=== PATIENT | male | born 1975 | race Caucasian/White ===

== ENCOUNTER → 2017-12-20 15:16 | Outpatient (CLI) | payer OTHER, SELFPAY ==
--- NOTE | 2017-12-20 15:17 | RAD_ITS ---
STUDY: X-RAY - RIGHT KNEE REASON FOR EXAM: Knee pain, postop. TECHNIQUE: 4 view(s) of the knee. COMPARISON: None. FINDINGS: Normal visualized distal femur. Normal visualized proximal tibia and fibula. Normal proximal tibiofibular articulation. There is mild joint space narrowing of the medial femorotibial compartment. Normal lateral femorotibial compartment. Normal patellofemoral articulation. The soft tissue structures are unremarkable. RAD/Knee 4 or More Views IMPRESSION: Mild joint space narrowing of the medial femorotibial compartment. Electronically Signed: Juan Lawson MD at 16:30 EDT Tel , Service support ,
== END ==
PROVIDERS: Family Provider Internal Medicine; PCP Internal Medicine; Visit Provider Orthopaedic Surgery
DX: M25.561 Pain in right knee (principal)
CPT/HCPCS: 73564

== ENCOUNTER → 2018-05-11 10:53 | Outpatient (CLI) | payer OTHER, SELFPAY ==
[2017-06-09 14:30] VITALS: BMI 27.1
--- NOTE | 2018-05-11 10:45 | RAD_ITS ---
STUDY: X-RAY - ORBITS REASON FOR EXAM: Male, 42 years old. This study is being performed as a clearance examination for exclusion of orbital metal, prior to the performance of an MRI examination. TECHNIQUE: 2 view(s) of the orbits were obtained. COMPARISON: None. FINDINGS: Normal bilateral orbits without a metallic orbital foreign body. Normal visualized facial bones. Normal paranasal sinuses. The soft tissue structures are unremarkable. RAD/Orbits for Foreign Body IMPRESSION: No demonstrated metallic orbital foreign body. The patient is cleared for an MRI examination. Electronically Signed: Bravo Lester MD at 11:26 EST Tel [phone], Service support ,
--- NOTE | 2018-05-11 10:56 | MRI_ITS ---
STUDY: MRI RIGHT KNEE REASON FOR EXAM: Right knee pain, history of bursectomy. TECHNIQUE: Standardized fat and water weighted pulse sequences were obtained in all 3 orthogonal planes. COMPARISON: Radiographs 12/20/2017. FINDINGS: There is a horizontal tear of the inferior articular surface/free margin of the posterior horn of the medial meniscus (proton-density sagittal images 33-38) with a very small parameniscal cyst (T2 sagittal image 22) and a flap tear of the posterior horn of the medial meniscus with a small superiorly displaced fragment (proton-density sagittal image 28). There is mild peripheral subluxation of the medial meniscus. Normal hyaline cartilage of the medial femorotibial compartment. Normal medial femoral condyle and tibial plateau. Normal medial collateral ligamentous complex (MCL). Normal distal semimembranosus, gracilis and semitendinosus tendons. Normal lateral meniscus. Normal hyaline cartilage of the lateral femorotibial compartment. Normal lateral femoral condyle and tibial plateau. Normal proximal tibiofibular articulation. Normal lateral collateral (fibular) ligament. Normal popliteus tendon. Normal biceps femoris tendon. Normal anterior cruciate ligament (ACL). Normal posterior cruciate ligament (PCL). Normal congruent patellofemoral articulation. Normal hyaline cartilage of the patellofemoral compartment. Normal medial and lateral patellar retinaculum. Normal visualized quadriceps tendon. Normal patellar tendon. Normal Hoffa's fat pad. There is a minimal volume of fluid in the knee joint. There is a thin medial patellar plica. There is extravasated fluid from a ruptured popliteal cyst (T2 sagittal images 12-16). There is micrometallic artifact at the anterior lateral aspect of the knee. The otherwise visualized osseous structures are unremarkable. MRI/Lower Ext Joint Only (Routine) IMPRESSION: Medial meniscal tear. Extravasated fluid from a ruptured popliteal cyst. Electronically Signed: Juan Lawson MD at 9:01 EST Tel , Service support ,
--- OUTSIDE RECORDS SUMMARY | 2018-07-06 13:18 | XMS RPT_ITS ---
:1975 Author Organization OHIP Care Team Providers Name Role Phone Mya Stewart Attending Unavailable Rom, Lauryn Referring Unavailable Rom, Lauryn Primary Care Unavailable Mya Stewart Attending Unavailable Rom, Lauryn Primary Care Unavailable Nurse, Surgery Attending Unavailable Rom, Lauryn Referring Unavailable Rom, Lauryn Primary Care Unavailable Mya Stewart Attending Unavailable Rom, Lauryn Referring Unavailable Rom, Lauryn Primary Care Unavailable Mya Stewart Attending Unavailable Rom, Lauryn Referring Unavailable Rom, Lauryn Primary Care Unavailable Mya Stewart Attending Unavailable Mya Stewart Referring Unavailable Rom, Lauryn Primary Care Unavailable Mya Stewart Attending Unavailable Lauryn Cueto Referring Unavailable Mya Stewart Attending Unavailable Mya Stewart Referring Unavailable Lauryn Cueto Primary Care Unavailable PROBLEMS PROBLEMS DATE TYPE CONDITION / CODE ATTENDING STATUS SOURCE 12/20/2017 Unknown M25.561 - Pain in [place], Active [place] right knee / [facility] M25.561(ICD-10) Hospital Repository 12/20/2017 Unknown S83.241A - Other [facility], [facility] [place] tear of medial [facility] meniscus, current Hospital injury, right Repository knee, initial encounter / S83.241A(ICD-10) 12/01/2017 Unknown M54.5 - Low back [place], Active [place] pain / [facility] M54.5(ICD-10) Hospital Repository 12/01/2017 Unknown G89.29 - Other [place], Active [place] chronic pain / [facility] G89.29(ICD-10) Hospital Repository 12/01/2017 Unknown M46.1 - [place], Active [place] Sacroiliitis, not [facility] elsewhere Hospital classified / Repository M46.1(ICD-10) 06/09/2017 Unknown M54.9 - [place], Active [place] Dorsalgia, [facility] unspecified / Hospital M54.9(ICD-10) Repository PROCEDURES PROCEDURES No Procedure Records FoundRESULTS RESULTS LOWER EXT JOINT ONLY Observed: 05/11/2018 Status: F Source: FANCY GAP (ROUTINE) 10:56 AM [facility] REPOSITORY [facility] Imaging Services [address] [place] [address] 18655 Lower Ext Joint Only (Routine) MR#: [id number] Acct: [id number] Name: EVELYN CORMIER Rep #: [id number] : 1975 M 42 From: Juan Lawson MD PCP: Lauryn Cueto DO Status: REG CLI Study: Lower Ext Joint Only (Routine) Date of Exam: 05/11/18 Exam# [id number] Ordering Dr: Mya Stewart DO STUDY: MRI RIGHT KNEE REASON FOR EXAM: Right knee pain, history of bursectomy. TECHNIQUE: Standardized fat and water weighted pulse sequences were obtained in all 3 orthogonal planes. COMPARISON: Radiographs 12/20/2017. FINDINGS: There is a horizontal tear of the inferior articular surface/free margin of the posterior horn of the medial meniscus (proton-density sagittal images 33-38) with a very small parameniscal cyst (T2 sagittal image 22) and a flap tear of the posterior horn of the medial meniscus with a small superiorly displaced fragment (proton-density sagittal image 28). There is mild peripheral subluxation of the medial meniscus. Normal hyaline cartilage of the medial femorotibial compartment. Normal medial femoral condyle and tibial plateau. Normal medial collateral ligamentous complex (MCL). Normal distal semimembranosus, gracilis and semitendinosus tendons. Normal lateral meniscus. Normal hyaline cartilage of the lateral femorotibial compartment. Normal lateral femoral condyle and tibial plateau. Normal proximal tibiofibular articulation. Normal lateral collateral (fibular) ligament. Normal popliteus tendon. Normal biceps femoris tendon. Normal anterior cruciate ligament (ACL). Normal posterior cruciate ligament (PCL). Normal congruent patellofemoral articulation. Normal hyaline cartilage of the patellofemoral compartment. Normal medial and lateral patellar retinaculum. Normal visualized quadriceps tendon. Normal patellar tendon. Normal Hoffa's fat pad. There is a minimal volume of fluid in the knee joint. There is a thin medial patellar plica. There is extravasated fluid from a ruptured popliteal cyst (T2 sagittal images 12-16). There is micrometallic artifact at the anterior lateral aspect of the knee. The otherwise visualized osseous structures are unremarkable. MRI/Lower Ext Joint Only (Routine) IMPRESSION: Medial meniscal tear. Extravasated fluid from a ruptured popliteal cyst. Electronically Signed: Juan Lawson MD at 9:01 EST Tel , Service support , CC: Mya Stewart DO; Lauryn Cueto DO Automobile Dealer: Signed ORBITS FOR FOREIGN Observed: 05/10/2018 Status: F Source: KRISHNA BODY 4:50 PM [facility] REPOSITORY [facility] Imaging Services [address] [place] [address] Orbits for Foreign Body MR#: [id number] Acct: [id number] Name: EVELYN CORMIER Rep #: [id number] : 1975 M 42 From: Bravo Lester MD PCP: Lauryn Cueto DO Status: REG CLI Study: Orbits for Foreign Body Date of Exam: 05/11/18 Exam# [id number] Ordering Dr: Mya Stewart DO STUDY: X-RAY - ORBITS REASON FOR EXAM: Male, 42 years old. This study is being performed as a clearance examination for exclusion of orbital metal, prior to the performance of an MRI examination. TECHNIQUE: 2 view(s) of the orbits were obtained. COMPARISON: None. FINDINGS: Normal bilateral orbits without a metallic orbital foreign body. Normal visualized facial bones. Normal paranasal sinuses. The soft tissue structures are unremarkable. RAD/Orbits for Foreign Body IMPRESSION: No demonstrated metallic orbital foreign body. The patient is cleared for an MRI examination. Electronically Signed: Bravo Lester MD at 11:26 EST Tel [phone], Service support , CC: Mya Stewart DO; Lauryn Cueto DO Automobile Dealer: Signed ORTHOPEDIC VISIT Observed: 03/21/2018 Status: F Source: KRISHNA REPORT 1:39 PM [facility] REPOSITORY [facility] Orthopaedics AND Sports Medicine [facility] [address] [place] [address] OFFICE VISIT Date of Service: 03/21/18 MR#: [id number] Acct: [id number] Name: EVELYN CORMIER Rep #: [id number] : 1975 Provider: Mya Stewart DO Age/Sex: 42/M [place] [facility] Status: Signed Intake Intake Visit Reasons: low back Is patient in pain?: Yes Pain scale (1-10): 3 Allergies No Known Allergies Allergy (Verified 12/01/17 14:07) Medications Ibuprofen [Motrin] 800 mg PO BID 05/28/15 [History Confirmed 06/09/17] Multivitamin [Daily Multiple Vitamin] 1 ea PO DAILY 05/28/15 [History Confirmed 06/09/17] Omeprazole [Prilosec] 40 mg PO DAILY 05/28/15 [History Confirmed 06/09/17] ascorbic acid (vitamin C) 500 mg tablet 500 mg PO QDAY 06/09/17 [History Confirmed 06/09/17] PFSH Surgical History S/P right knee surgery (Inactive) Family History Father Diabetes Social History Smoking Status: Current every day smoker HPI low back: Details: EVELYN CORMIER is a 42 year old M here today for increased right side PSIS pain. His last injection was 5 months ago. He has pain most of the time, increased with flexion and lifting. Denies numbness, tingling or other associated symptoms. He used ibuprofen prn. no chagnes in meds, med history, or other symptoms. Office Procedures Ortho Injections Injections Yes SI Joint (right PSIS) Details: Obtained consent for injection. Under sterile conditions, injected the patients right psis with 1cc bupivacaine and 1/2 cc kenalog. The patient tolerated the injection well without any noted complication. Patient should call our office if redness develops, pain worsens or if they have any concerns. Office Meds Kenalog Performing Provider: Mya Stewart DO Administered by: Mya Stewart DO on 03/21/18 09:29 Dose Route Admin Location Lot Number Expiration DateNDC Golf Superintendent 20 mg Intra-Articularright PSIS [id number] 05/13/19 0746-3767-01 [employer] Assessment AND Plan Plan patient has pain in left psis and has had success with injections in the past. patient elected to proceed with injection today. discussed if this fails to work will discuss other options at next visit. see chart for further details. Orders Orders: Medications Discontinued: Kenalog (triamcinolone acetonide) Disco20 mg (0.5 mL) Intra- Articular ONCE 0.5 mLM54.5 ntinued Reason: Office Medication has bee 0RF NS n Documented as given Coding Level of Care Code No Charge 03/21/18 1339 <Electronically signed by Mya Stewart DO> Date Mya Stewart DO Cosigner Signature: Date (if applicable) CC: ORTHOPEDIC VISIT Observed: 12/23/2017 Status: F Source: KRISHNA REPORT 10:42 AM [facility] REPOSITORY [facility] Orthopaedics AND Sports Medicine [address] [place] [address] OFFICE VISIT Date of Service: 12/20/17 MR#: [id number] Acct: [id number] Name: EVELYN CORMIER Rep #: [id number] : 1975 Provider: Mya Stewart DO Age/Sex: 42/M [place] [facility] Status: Signed Intake Intake Visit Reasons: RIGHT KNEE PAIN Is patient in pain?: Yes Pain scale (1-10): 3 Allergies No Known Allergies Allergy (Verified 12/01/17 14:07) Medications Ibuprofen [Motrin] 800 mg PO BID 05/28/15 [History Confirmed 06/09/17] Multivitamin [Daily Multiple Vitamin] 1 ea PO DAILY 05/28/15 [History Confirmed 06/09/17] Omeprazole [Prilosec] 40 mg PO DAILY 05/28/15 [History Confirmed 06/09/17] ascorbic acid (vitamin C) 500 mg tablet 500 mg PO QDAY 06/09/17 [History Confirmed 06/09/17] PFSH Surgical History S/P right knee surgery (Inactive) Family History Father Diabetes Social History Smoking Status: Current every day smoker HPI RIGHT KNEE PAIN: Details: EVELYN CORMIER is a 42 year old M here today for right knee pain. He states that over a year ago he had pain and saw Cong Janus who put him on Mobic but it was not helpful. He complains of medial knee pain and occasional swelling but he has increased pain with flexion and squatting in his posterior knee. Denies numbness, tingling or other associated symptoms. He has no known injury, no PT and no injections. He is having difficulty being able to work as he would like. Ortho Exam Right Knee Skin/Wound: Yes CDI Contralateral Normal: Yes Swelling: Yes Homans Sign: No Knee ROM: Yes ROM-Extension -20 to 0, Yes ROM-Flexion 0-140 (130) Examination: Yes Pain with flexion, Yes Crepitus, Yes Tiffani's Test, Yes Med jt line tenderness Quad Atrophy: No Apprehension with Lateral Translation: No Patella Grind: No KNEE: palpable plica band Assessment AND Plan 1. Acute medial meniscus tear of right knee, initial encounter S83.373J Plan X-rays were reviewed. There is no obvious fracture, dislocation, or lucency noted. Educated on the anatomy of the knee and explained he has signs of a medial meniscus tear. His options are do nothing, injections, PT and HEP. Due to the limited rom, pain with [place] we will order an MRI and gave PT script. Follow up in [] or sooner if pain, swelling, numbness or associated symptoms, or concerns develop. All questions answered. Patient in agreement of plan. Orders Orders: Plan Detail Other Orders Orders: Coding Level of Care Code Off vis,est,level 4 Diagnoses Acute medial meniscus tear of right knee, initial encounter S83.089X Encounter type: initial encounter 12/23/17 1042 <Electronically signed by Mya Stewart DO> Date Mya Santamaria Signature: Date (if applicable) CC: KNEE 4 OR MORE Observed: 12/20/2017 Status: F Source: KRISHNA JAZMIN 3:17 PM [facility] Imaging Services [address] [place] [address] Knee 4 or More Views MR#: [id number] Acct: [id number] Name: EVELYN CORMIER Rep #: [id number] : 1975 M 42 From: Juan Lawson MD PCP: Lauryn Cueto DO Status: REG CLI Study: Knee 4 or More Views Date of Exam: 12/20/17 Exam# [id number] Ordering Dr: Mya Stewart DO STUDY: X-RAY - RIGHT KNEE REASON FOR EXAM: Knee pain, postop. TECHNIQUE: 4 view(s) of the knee. COMPARISON: None. FINDINGS: Normal visualized distal femur. Normal visualized proximal tibia and fibula. Normal proximal tibiofibular articulation. There is mild joint space narrowing of the medial femorotibial compartment. Normal lateral femorotibial compartment. Normal patellofemoral articulation. The soft tissue structures are unremarkable. RAD/Knee 4 or More Views IMPRESSION: Mild joint space narrowing of the medial femorotibial compartment. Electronically Signed: Juan Lawson MD at 16:30 EDT Tel , Service support , CC: Mya Stewart DO; Lauryn Cueto DO Automobile Dealer: Signed ORTHOPEDIC VISIT Observed: 12/08/2017 Status: F Source: FANCY GAP REPORT 1:35 PM [facility] REPOSITORY [facility] Orthopaedics AND Sports Medicine [address] [place] [address] OFFICE VISIT Date of Service: 12/01/17 MR#: [id number] Acct: [id number] Name: EVELYN CORMIER Rep #: [id number] : 1975 Provider: Mya Stewart DO Age/Sex: 42/M [place] [facility] Status: Signed Intake Intake Visit Reasons: RIGHT HIP Is patient in pain?: Yes Allergies No Known Allergies Allergy (Verified 12/01/17 14:07) Medications Ibuprofen [Motrin] 800 mg PO BID 05/28/15 [History Confirmed 06/09/17] Multivitamin [Daily Multiple Vitamin] 1 ea PO DAILY 05/28/15 [History Confirmed 06/09/17] Omeprazole [Prilosec] 40 mg PO DAILY 05/28/15 [History Confirmed 06/09/17] ascorbic acid (vitamin C) 500 mg tablet 500 mg PO QDAY 06/09/17 [History Confirmed 06/09/17] PFSH Surgical History S/P right knee surgery (Inactive) Family History Father Diabetes Social History Smoking Status: Current every day smoker HPI RIGHT HIP: Details: EVELYN CORMIER is a 42 year old M here today for right sided low back/hip pain. He complains of pain over his PSIS. Patient notes the injection on 06/09/17 which was helpful for about 5 months. Patient has increased pain with laying down or prolonged sitting. He notes that he is taking ibuprofen 800 for pain daily. Denies numbness, tingling or other associated symptoms. ROS Const Reports system reviewed and no additional complaints, except as docu Eyes Reports system reviewed and no additional complaints, except as docu ENT Reports system reviewed and no additional complaints, except as docu Card Reports system reviewed and no additional complaints, except as docu Resp Reports system reviewed and no additional complaints, except as docu GI Reports system reviewed and no additional complaints, except as docu Reports system reviewed and no additional complaints, except as docu Musc Reports joint pain Skin/Breast Reports system reviewed and no additional complaints, except as docu Neuro Yes system reviewed and no additional complaints, except as docu Psych Reports system reviewed and no additional complaints, except as docu Endo Reports system reviewed and no additional complaints, except as docu Ortho Exam Spine General: alert, awake, oriented x3 Cognition: normal cognition Gait: normal gait Motor: muscle tone normal throughout Sensory Exam: no sensory deficits noted SPINE TESTING CERVICAL THORACIC LUMBAR Musculoskeletal General: Yes normal posture Strength 0=absent - 5=normal Details: ttp right psis Office Procedures Ortho Injections Injections Yes SI Joint (right side PSIS) Details: Obtained consent for injection. Under sterile conditions, injected the patients right PSIS with 0.5cc kenalog and 1cc bupivacaine. The patient tolerated the injection well without any noted complication. Patient should call our office if redness develops, pain worsens or if they have any concerns. Assessment AND Plan Problems 1. Chronic right-sided low back pain without sciatica M54.5; G89.29 Plan Injections were helpful for nearly 5 months and we will continue with conservative care and inject today. Reviewed the soreness he can expect over the next couple days until the steroid kicks in. Follow up in 3 months if needed or sooner if pain, swelling, numbness or associated symptoms, or concerns develop. All questions answered. Patient in agreement of plan. Orders Orders: Medications New: Kenalog (triamcinolone acetonide) 0.5 mg (0.05 mL) Intra- Articular ONG89.29, M46.1, M54.5 CE NS Coding Level of Care Code No Charge Diagnoses Chronic right-sided low back pain without sciatica M54.5; G89.29 Back pain laterality: right Chronicity: chronic Sciatica presence: without sciatica 12/08/17 1335 <Electronically signed by Mya Stewart DO> Date Mya Sutherlandigner Signature: Date (if applicable) CC: ORTHOPEDIC VISIT Observed: 07/14/2017 Status: F Source: KRISHNA REPORT 2:54 PM [facility] REPOSITORY [facility] Orthopaedics AND Sports Medicine [address] [place] [address] 324571 OFFICE VISIT Date of Service: 06/09/17 MR#: [id number] Acct: [id number] Name: EVELYN CORMIER Rep #: [id number] : 1975 Provider: Mya Stewart DO Age/Sex: 41/M [place] [facility] Status: Signed Intake Vital Signs06/09/17 Height 6 ft 06/09/17 Weight: 200 lb 06/09/17 Body Mass Index (BMI) 27.1 Intake Visit Reasons: low back Is patient in pain?: Yes Pain scale (1-10): 6 Allergies No Known Allergies Allergy (Verified 06/09/17 14:30) Medications Ibuprofen [Motrin] 800 mg PO BID 05/28/15 [History Confirmed 06/09/17] Multivitamin [Daily Multiple Vitamin] 1 ea PO DAILY 05/28/15 [History Confirmed 06/09/17] Omeprazole [Prilosec] 40 mg PO DAILY 05/28/15 [History Confirmed 06/09/17] ascorbic acid (vitamin C) 500 mg tablet 500 mg PO QDAY 06/09/17 [History Confirmed 06/09/17] PFSH Surgical History S/P right knee surgery (Inactive) Family History Father Diabetes Social History Smoking Status: Current every day smoker HPI low back: Details: EVELYN CORMIER is a 41 year old M here today for low back pain. He complains of constant right sided low back pain for years but has worsened in the past 3 months. No injury. He has known herniated disc L4-5 seen in previous MRI, most recent 2009. He sees Dr. Cruz for low back pain and has see Dr. Garay for back injections. He has had at least 3 back injections (within 3 months) but did not seem to work. Intermittently he has pain into right buttocks. No tingling/numbness. He takes Ibuprofen 1 tablet twice a day which helps. No changes in bowel and bladder control. Denies changes in night sweats and no saddle anesthesia, no fevers or chills. ROS Const Reports system reviewed and no additional complaints, except as docu Eyes Reports system reviewed and no additional complaints, except as docu ENT Reports system reviewed and no additional complaints, except as docu Card Reports system reviewed and no additional complaints, except as docu Resp Reports system reviewed and no additional complaints, except as docu GI Reports system reviewed and no additional complaints, except as docu Reports system reviewed and no additional complaints, except as docu Musc Reports back pain Skin/Breast Reports system reviewed and no additional complaints, except as docu Neuro Yes system reviewed and no additional complaints, except as docu Psych Reports system reviewed and no additional complaints, except as docu Endo Reports system reviewed and no additional complaints, except as docu Tyler/Lymph Reports system reviewed and no additional complaints, except as docu Aller/Immun Reports system reviewed and no additional complaints, except as docu Ortho Exam Spine Neuro: No Straight Leg Raise or Light Touch Sensation Cognition: normal cognition Speech: speech normal Gait: normal gait Sensory Exam: no sensory deficits noted SPINE TESTING CERVICAL THORACIC LUMBAR SLR: Negative Musculoskeletal General: Yes normal posture Thoracic/Lumbar Spine: thoracic and lumbar spine normal to inspection, lumbar spinal tenderness Strength 0=absent - 5=normal Office Procedures Ortho Injections Injections Details: Obtained consent for injection. Under sterile conditions, injected the patients right psis with 4cc bupivacaine and 1cc kenalog. The patient tolerated the injection well without any noted complication. Patient should call our office if redness develops, pain worsens or if they have any concerns. Office Meds Kenalog Performing Provider: Mya Stewart DO Administered by: Mya Stewart DO on 06/09/17 15:17 Dose Route Admin Location Lot Number Expiration DateNDC Golf Superintendent 1 mg Intra-Articularright psis [id number] 09/11/18 4046-9179-97 [employer] Assessment AND Plan 1. Acute right-sided low back pain without sciatica M54.5; M54.5 Plan Personally reviewed the patient's medical history, medications, surgeries and recent exams if available. Obtained X-rays of patient's lumbar spine. Personally reviewed x-rays. There is no obvious fracture, dislocation, or lucency noted. No pain with percussion on exam, no radiculopathy today, no reproduction of pain through rom. Gave PT script today, if that fails we will order a new MRI. He does have ttp the psis of the right side. Reviewed trial of injection in right psis Follow up as needed or sooner if pain, swelling, numbness or associated symptoms, or concerns develop. All questions answered. Patient in agreement of plan. Orders Orders: Referrals: Medications Discontinued: Kenalog Discontinued Reason: Office M1 mg (0.1 mL) Intra- Articular ONCE NS [place] edication has been Documented as given Plan Detail Other Orders Orders: Coding Level of Care Code Off vis,new,level 3 Diagnoses Acute right-sided low back pain without sciatica M54.5; M54.5 Back pain laterality: right Chronicity: acute Sciatica presence: without sciatica 07/14/17 1454 <Electronically signed by Mya Stewart DO> Date Mya Stewart DO Cosigner Signature: Date (if applicable) CC: L/S SPINE COMP/W Observed: 06/09/2017 Status: F Source: FANCY GAP BENDING VIEWS 2:49 PM [facility] REPOSITORY [facility] Imaging Services [address] [place] [address] L/S Spine Comp/w Bending Views MR#: [id number] Acct: [id number] Name: GENIAEVELYN W Rep #: [id number] : 1975 M 41 From: Reyes Medina MD PCP: Lauryn Cueto DO Status: REG CLI Study: L/S Spine Comp/w Bending Views Date of Exam: 06/09/17 Exam# [id number] Ordering Dr: Mya Stewart DO STUDY: X-RAY - LUMBOSACRAL SPINE REASON FOR EXAM: Male, 41 years old. Low back pain. Injury 8 years ago. TECHNIQUE: 7 view(s) of the lumbosacral spine including lateral flexion and extension views were obtained. COMPARISON: None FINDINGS: Normal lumbar lordosis. There is no substantial scoliosis. There is normal alignment of the vertebrae. There is limited flexion and extension with no abnormal motion. Normal vertebral bodies and endplates. There is minimal intervertebral disc space narrowing with small osteophytes at L4-5. There is minimal lower facet sclerosis. Normal bilateral sacral ala, sacroiliac joints, and visualized sacrum. Normal visualized soft tissue structures. RAD/L/S Spine Comp/w Bending Views IMPRESSION: Limited flexion and extension with no abnormal motion. Mild lumbar spondylosis as described. Electronically Signed: Reyes Medina MD at 11:55 EST , Service support , CC: Mya Stewart DO; Lauryn Cueto DO Automobile Dealer: Signed ALLERGIES ALLERGIES DATE TYPE / CODE NAME / CODE REACTION SEVERITY SOURCE 12/01/2017 Drug No Known Unknown [facility] Allergy/4160 Allergies/F00 Hospital 38661(SNOMED [id number](RXNOR Repository CT) M) ENCOUNTERS ENCOUNTERS ADMIT/DISCHARGE ACCOUNT ADMITTING ENCOUNTER LOCATION SOURCE NUMBER CLASS 05/11/2018 [id number] Ambulatory [place] 2 [facility] ing:MRI Repository 03/21/2018/ [id number] Ambulatory BMSBuilding:B [facility] 8 1 [facility] Repository 12/20/2017 [id number] Ambulatory [place] 0 [facility] ing:HPRAD Repository 12/20/2017/ [id number] Ambulatory BMSBuilding:B [place] 8 4 [place] Repository 12/01/2017/ [id number] Ambulatory BMSBuilding:B Krishna 8 1 MS.[facility] Repository 08/30/2017/ [id number] Ambulatory BMSBuilding:[place] 8 3 MS.[facility] Repository 06/09/2017 [id number] Ambulatory [place] 1 [facility] ing:HPRAD Repository 06/09/2017/ [id number] Ambulatory BMSBuilding:[place] 7 6 MS.[facility] Repository PAYERS PAYERS ENCOUNTER GUARANTOR PAYER SUBSCRIBER SOURCE 05/11/2018 EVELYN Maravilla Primary Insurance:[facility] WINNIE [place] [id number] [facility] SCHRIBERDOB: [facility] 6340-23-[place]FRFB[place] Number: Repository [id number]: [phone] [id number] [phone] (HP) Date:1881-95-28FV [address] [address]ZICSGCKKH, [place] [address]OB: CHECK WEBSITE 05/11/2018 Secondary NOT GIVENUNK Krishna Insurance:SELF PAY [facility] Number: Effective Repository Date:2018-01-02 03/21/2018 EVELYN Maravilla Primary Insurance:[facility] WINNIE [place] [id number] [facility] SCHRIBERDOB: [facility] 9624-74-44[place]TR[place], [place] Number: Repository [id number]: 330 [id number] [phone] (HP) Date:2633-44-01JW [address] [address]PNVTROULC, [place] [address]QE: CHECK WEBSITE 03/21/2018 Secondary NOT GIVENUNK Krishna Insurance:SELF PAY [facility] Number: Effective Repository Date:2018-03-21 12/20/2017 EVELYN Taiwo Primary Insurance:[facility] WINNIE [place] [id number] [facility] SCHRIBERDOB: [facility] 8935-03-45KSZBrentwood, [place] Number: Repository [id number]: [phone] [id number] [phone] (HP) Date:9634-97-87CD [address] [address]EINVEAMQU, [place] [address]QK: CHECK WEBSITE 12/20/2017 Secondary NOT GIVENUNK Krishna Insurance:SELF PAY [facility] Number: Effective Repository Date:2017-12-20 12/20/2017 EVELYN Maravilla Primary Insurance:[facility] WINNIE Solomon [id number] [employer] SCHRIBERDOB: [facility] 4911-05-73OMXBrentwood, [place] Number: Repository [id number]: 330 [id number] [phone] (HP) Date:1538-10-34BU [address] [address]EULMEZVLY, [place] [address]YT: CHECK WEBSITE 12/20/2017 Secondary NOT GIVENUNK Krishna Insurance:SELF PAY [facility] Number: Effective Repository Date:2017-12-20 12/01/2017 EVELYN Taiwo Primary Insurance:[facility] WINNIE [place] [id number] [facility] SCHRIBERDOB: [facility] 6915-38-47MOABrentwood, [place] Number: Repository [id number]: [phone] [id number] [phone] (HP) Date:4385-78-29VU [address] [address]DAICSBVZP, [place] [address]AM: CHECK WEBSITE 12/01/2017 Secondary NOT GIVENUNK Krishna Insurance:SELF PAY [facility] Number: Effective Repository Date:2017-12-01 08/30/2017 EVELYN W Primary Insurance:[facility] WINNIE Solomon [id number] [facility] SCHRIBERDOB: [facility] 7649-34-17ODUBrent[place], [place] Number: Repository [address]Rgw: [id number] [phone] Date:5401-32-53PX [address] [address]TXMEIDRLE, [place] [address]IY: CHECK WEBSITE 08/30/2017 Secondary NOT GIVENUNK Krishna Insurance:SELF PAY [facility] Number: Effective Repository Date:2017-08-30 06/09/2017 EVELYN W Primary Insurance:[facility] Winnie [place] [id number] [employer] [facility] SchriberDOB: [facility] 1883-89-65QJRBrentwood, [place] Number: Repository [id number]: [id number] [phone] Date:7431-58-18HS [address] () [address]KTOGAGTWX, [place] [address]KV: CHECK WEBSITE 06/09/2017 Secondary NOT GIVENUNK Krishna Insurance:SELF PAY [facility] Number: Effective Repository Date:2017-06-09 06/09/2017 EVELYN W Primary Insurance:[facility] Winnie [place] [id number] [facility] SchriberDOB: [facility] 5235-41-71XPWBrentwood, [place] Number: Repository [id number]: [id number] [phone] Date:8869-81-34QG [address] () [address]ZTMGEZMHJ, [place] [address]DS: CHECK WEBSITE 06/09/2017 Secondary NOT GIVENUNK Krishna Insurance:SELF PAY [facility] Number: Effective Repository Date:2017-05-16
== END ==
PROVIDERS: Family Provider Internal Medicine; PCP Internal Medicine; Referring Provider Orthopaedic Surgery; Visit Provider Orthopaedic Surgery
DX: Z01.818 Encounter for other preprocedural examination (principal); S83.241A Other tear of medial meniscus, current injury, right knee, initial encounter; X58.XXXA Exposure to other specified factors, initial encounter; Y93.9 Activity, unspecified; Y92.9 Unspecified place or not applicable; Y99.9 Unspecified external cause status
CPT/HCPCS: 70030; 73721

== ENCOUNTER → 2018-10-24 15:13 | Outpatient (CLI) | payer OTHER, SELFPAY ==
[2017-06-09 14:30] VITALS: BMI 27.1
== END ==
PROVIDERS: Family Provider Internal Medicine; PCP Internal Medicine; Referring Provider Otolaryngology Otolaryngology/Facial Plastic Surgery; Visit Provider Otolaryngology Otolaryngology/Facial Plastic Surgery
DX: J32.9 Chronic sinusitis, unspecified (principal)
CPT/HCPCS: 87070; 87077; 87205

== ENCOUNTER → 2018-11-15 15:59 | Outpatient (CLI) | payer OTHER, SELFPAY | PROVIDERS: Family Provider Internal Medicine; PCP Internal Medicine; Referring Provider Otolaryngology Otolaryngology/Facial Plastic Surgery; Visit Provider Otolaryngology Otolaryngology/Facial Plastic Surgery | DX: J32.9 Chronic sinusitis, unspecified (principal); J40 Bronchitis, not specified as acute or chronic | CPT/HCPCS: 87070; 87205 ==

== ENCOUNTER → 2018-12-15 14:23 | Outpatient (CLI) | payer OTHER, SELFPAY ==
--- NOTE | 2018-12-15 14:33 | RAD_ITS ---
STUDY: X-RAY CHEST REASON FOR EXAM: Male, 43 years old. Cough x 8 weeks. TECHNIQUE: PA and lateral views of the chest. COMPARISON: None. FINDINGS: The lungs are normally expanded. Mildly lobulated 1 cm nodular density projects on the frontal view in the lateral right midlung, overlapping the posterior lateral right eighth rib. This may be calcified, such as a granuloma. There is focal curvilinear scarring in the lingula of the left upper lobe. There is no demonstrated pleural abnormality. Normal size heart. Normal mediastinum and mis. Normal visualized pulmonary arteries. Normal visualized aortic arch and descending thoracic aorta. Normal visualized thoracic spine. Normal visualized ribs, clavicles, and shoulders. There is no demonstrated abnormality of the visualized soft tissue structures of the upper abdomen. RAD/Chest PA and Lateral IMPRESSION: Probable focal scarring in the bilateral lung bases, as described. The area on the right has a nodular appearance, and comparison with any previous outside studies would be useful to document stability. If none are available, one might consider shallow oblique views for further characterization or 3 month follow-up. Electronically Signed: Camacho Hart MD at 14:47 EDT , Service support ,
== END ==
PROVIDERS: Family Provider Internal Medicine; PCP Internal Medicine; Referring Provider Otolaryngology Otolaryngology/Facial Plastic Surgery; Visit Provider Otolaryngology Otolaryngology/Facial Plastic Surgery
DX: R05 Cough (principal)
CPT/HCPCS: 71046

== ENCOUNTER → 2019-01-04 07:50 | Outpatient (CLI) | payer OTHER, SELFPAY ==
--- NOTE | 2019-01-04 07:54 | CT_ITS ---
STUDY: CT CHEST WITH CONTRAST REASON FOR EXAM: Male, 43 years old. Persistent nonproductive cough RADIATION DOSAGE (If Supplied By Facility): CTDIvol = ( 13.75 ) mGy, DLP = ( 546.50 ) mGycm TECHNIQUE: Transaxial imaging was performed following intravenous administration of 100 IV Isovue 300. Individualized dose optimization techniques were used for this CT. COMPARISON: Previous plain films FINDINGS: Lung windows show noncalcified nodular densities in the right middle lobe on axial image 62 of uncertain significance, this may be sequela from previous inflammation or a more sinister process. Consider further evaluation with PET/CT or short-term follow-up to assure stability The lungs are otherwise normal. There is no demonstrated pleural abnormality. Normal heart and pericardium. Normal mediastinum. Normal hilar regions. Normal enhanced pulmonary arteries. Normal aorta arch and descending thoracic aorta. Normal osseous structures. Limited cuts through the upper abdomen show fatty infiltration of the liver. CT/Chest WITH Contrast IMPRESSION: Some interstitial changes noted in both lung terrell with focal area of noncalcified nodularity in the right middle lobe on axial image 62. This may be sequela from previous inflammatory process, but a more sinister process cannot be excluded. Consider further evaluation with PET/CT or short-term follow-up to assure stability No organized infiltrate or effusion No suspicious adenopathy Fatty liver Electronically Signed: Camacho Jones MD at 12:33 EDT , Service support ,
== END ==
PROVIDERS: Family Provider Internal Medicine; PCP Internal Medicine; Referring Provider Otolaryngology Otolaryngology/Facial Plastic Surgery; Visit Provider Otolaryngology Otolaryngology/Facial Plastic Surgery
DX: R05 Cough (principal); R91.8 Other nonspecific abnormal finding of lung field
CPT/HCPCS: 71260; Q9967

== ENCOUNTER → 2019-02-26 08:40 | Outpatient (CLI) | payer OTHER, SELFPAY ==
[2019-01-16 10:38] VITALS: BMI 29.4
[2019-02-26] VITALS (11 sets, daily range): BP systolic 123–143; BP diastolic 71–96; PULSE 56–67; RESP 16–18; TEMP 37.1; O2SAT 91–100; BMI 29.1
--- NOTE | 2019-02-26 | IMM_PTH ---
PATIENT: EVELYN CORMIER LOC: CT U#:[id number] AGE/SX: 49/M ROOM: RE02/26/[address]: Dr. Theo Doran MD : 1975 BED: DIS: SPEC #: [id number] RECD: 02/27/19 12:27 STATUS: LUCILLE REAlexander #: [id number] ARLENE: 02/26/19 00:[address]: Theo Doran DEPT: IMMUNOHISTOCHEMISTRY RECD BY: Karrie Rai ENTERED: 02/27/19 12:28 SP TYPE: IMMUNO OTHR DR: Dr. Lauryn Cueto DO Tissues: Lung, NOS Procedures: Boni Ret (add) CK7 (add) CK8 (add) MACRO (add) Vimentin (add) Pankeratin (initial) PHYSICIAN & INSTITUTION [place] [address] SPECIMEN INFORMATION: Tissue Source: Right upper lobe, lung, CT-guided core biopsy Clinical Info: Right lung nodule Specimen Number: [id number] CPT code: 86555, 03775 x5 METHODOLOGY: Deparaffinized sections of prefer/formalin-fixed tissue or PAP/DQ stained slides are incubated with monoclonal/polyclonal antibodies/oligonucleotide probes. Localization is made via biotin free immunoperoxidase method. Appropriate controls are performed and reacted as expected. Results on target cell population are indicated in the following table: RESULTS: ANTIBODY / CLONE RESULT AE1-3 (AE1/AE3/PCK26) positive CK7 (OV-TL12/30) positive CK8 (33pfgjO15) positive, focal Vimentin (V9) negative Macro (HAM-56) positive, rare cells CALRET (polyclonal) negative These tests were developed and their performance characteristics determined by [facility]. They may not have been cleared or approved by the U.S. Food and Drug Administration. The FDA has determined that such clearance or approval is not necessary. INTERPRETATION: Right upper lobe, lung, CT-guided core biopsy: A minute fragment of benign lung parenchymal tissue. NIR:leana 02/28/19
[2019-02-26 08:52] LABS: Hematocrit 48.9 % (40-54); Hemoglobin 16.4 g/dL (13.0-16.5); Mean Corp Hgb Conc 33.5 g/dL (32-36); Mean Corpuscular Hgb 29.4 pg (27.0-32.0); Mean Corpuscular Volume 87.6 fL (80-94); Mean Platelet Vol. 9.4 fl (6.2-12.0); Platelet Count 258 K/mm3 (150-450); RBC Distribution Width CV 12.3 % (11.6-14.6); RBC Distribution Width SD 39.6 fl (35.1-43.9); Red Blood Count 5.58 M/mm3 (4.6-6.2); White Blood Count 8.1 K/mm3 (4.4-11.0)
[2019-02-26 09:07] LABS: Prothrombin Time (Protime)PT. 13.3 SECONDS (11.7-14.9)
[2019-02-26 09:08] LABS: Partial Thromboplast Time 28.7 Seconds (24.1-36.2)
--- NOTE | 2019-02-26 09:14 | CT_ITS ---
PROCEDURE: CT GUIDED CORE NEEDLE BIOPSY OF A right upper lobe LUNG LESION INDICATION: Male, 43 years old. Right upper lobe nodule. PHYSICIAN: Dr. rTevon TOURE CONSENT: Written informed consent was obtained having explained the risks, benefits and alternatives in detail with the patient who accepted the risks and agreed to proceed. Laboratory review and clinical assessment was performed. CONSCIOUS SEDATION PROTOCOL: The Drugs used were: 2 mg Versed, IV., and 50 mcg Fentanyl, IV. The sedation time was: 10 minutes. Conscious sedation was started at 10:23 AM and terminated at 10:33 AM. The conscious sedation protocol was independently monitored. RADIATION DOSAGE (If Supplied By Facility): CTDIvol = ( 13 ) mGy, DLP = ( 382.95 ) mGycm Individualized dose optimization techniques were used for this CT. TECHNIQUE: The patient was placed in the supine position. A noncontrast CT was performed to localize the lesion in the right upper lobe . The skin surface was prepped and draped in a sterile fashion. 1% lidocaine was used for local anesthesia. Using CT guidance, a 20-gauge coaxial biopsy device was advanced to the periphery of the lesion. A total of 5 core specimens were obtained. The specimens were placed in a formalin solution. A post procedure CT demonstrated no adverse sequelae or pneumothorax. The patient tolerated the procedure well without adverse event. A negative biopsy does not exclude malignancy. Further imaging or clinical followup based on patient condition and degree of clinical suspicion for malignancy. Suggest rebiopsy, if biopsy results do not match with clinical scenario. CT/Biopsy/Inj or Needle Placement IMPRESSION: 1. CT directed core needle biopsy of the right upper lobe nodule using CT image guidance with image documentation as described. Pathology results are pending. 2. Conscious Sedation protocol utilized with independent monitoring. Electronically Signed: Bravo Lester, at 11:19 EDT , Service support ,
[2019-02-26] MEDS: Midazolam 2 MG/2 ML Syringe IV (10:23)
[2019-02-26] MEDS: fentaNYL 100 MCG/2 ML Ampul IV (10:23)
--- NOTE | 2019-02-26 10:25 | ASPIGT_PTH ---
PATIENT: EVELYN CORMIER LOC: [place] U#:[id number] AGE/SX: 49/M ROOM: RE02/26/[address]: Dr. Theo Doran MD : 1975 BED: DIS: SPEC #: [id number] RECD: 02/26/19 11:10 STATUS: LUCILLE DAISY #: [id number] ARLENE: 02/26/19 10:[address]: Theo Doran DEPT: SURGICAL PATHOLOGY RECD BY: Austin Page ENTERED: 02/26/19 11:11 SP TYPE: ASP RAD OTHR DR: Dr. Lauryn Cueto DO Tissues: Right lung, NOS Procedures: FNA Specimen Adequacy Special Stain Group II Surgery Specimen Level IV Imprint (control) HEADER OPERATION: CT-guided right upper lobe, lung, core biopsy PRE-OP DIAGNOSIS: Right lung nodule TISSUE SUBMITTED: Right lung nodule 20 gauge x5 cores MICROSCOPIC DIAGNOSIS Right lung nodule, CT-guided core biopsy: Negative for malignancy. See comment. NIR:leana 02/27/19 COMMENT The specimen is evaluated at the time of biopsy by Dr. Khan. Immediate Evaluation = Negative for malignant cells. Smears predominantly consists of benign cells and a few cells suggestive of granuloma formation. Cell block is paucicellular and consists of a minute fragment of benign lung parenchymal tissue. Immunohistochemistry ([id number]) supports the above diagnosis. Correlation with clinical, radiologic findings and appropriate follow up are necessary. Case has been reviewed in consultation with Dr. Ramirez who concurs with the above diagnosis. IDC:AM MICROSCOPIC DESCRIPTION Slides are reviewed. GROSS DESCRIPTION Received in fixative is one container labeled with the patient's name and designated right lung nodule. The specimen consists of a scant amount of soft tissue. The specimen is totally submitted for cell block preparation. Four touch imprints are prepared at the time of core biopsy. / NIR:leana 02/26/19 TC:5 CPT: 52086, 86623
--- NOTE | 2019-02-26 10:30 | RAD_ITS ---
STUDY: X-RAY CHEST REASON FOR EXAM: Male, 43 years old. Immediate post right lung biopsy radiograph. TECHNIQUE: AP inspiration and expiration views. COMPARISON: Comparison is made with prior examination dated December 15, 2018. FINDINGS: There is no evidence of pneumothorax on the immediate postright lung biopsy radiograph. RAD/Chest Insp/Exp 2 View IMPRESSION: No evidence of pneumothorax on the immediate postright lung biopsy radiograph. Electronically Signed: Bravo Lester, at 13:19 EDT , Service support ,
--- NOTE | 2019-02-26 12:43 | RAD_ITS ---
STUDY: X-RAY CHEST REASON FOR EXAM: Male, 43 years old. 2 hour postright lung biopsy radiograph. TECHNIQUE: Inspiration expiration views. COMPARISON: Comparison is made with prior study done earlier today. FINDINGS: No evidence of pneumothorax on the delayed post right lung biopsy. RAD/Chest Insp/Exp 2 View IMPRESSION: No evidence of pneumothorax on the delayed post right lung biopsy radiograph. Electronically Signed: Bravo Lester, at 14:22 EDT , Service support ,
== END ==
PROVIDERS: Family Provider Internal Medicine; PCP Internal Medicine; Referring Provider Internal Medicine Critical Care Medicine; Visit Provider Internal Medicine Critical Care Medicine
DX: R91.1 Solitary pulmonary nodule (principal); Z79.899 Other long term (current) drug therapy
CPT/HCPCS: 32405; 36415; 71046; 77012; 85027; 85610; 85730; 88172; 88305; 88307; 88313; 88341; 88342; 99156; J7040

== ENCOUNTER → 2019-03-07 10:58 | Outpatient (CLI) | payer OTHER, SELFPAY ==
[2019-03-07 06:16] VITALS: BMI 29.2
--- NOTE | 2019-03-07 11:00 | RAD_ITS ---
STUDY: X-RAY CHEST REASON FOR EXAM: Male, 43 years old. RECENT LUNG BX, HAVING SOB AND SOME RIGHT SIDED CP NOW TECHNIQUE: PA and lateral views of the chest. COMPARISON: Procedural CT images from lung biopsy on the right dated February 26, 2019, chest x-ray February 26, 2019, PA and lateral chest December 15, 2018 FINDINGS: Pulmonary nodule seen in the right lung which was biopsied is again evident without a significant change in size postbiopsy. The remainder lungs are and expanded. There is no demonstrated pleural abnormality. Normal size heart. Normal mediastinum and mis. Normal visualized pulmonary arteries. Normal visualized aortic arch and descending thoracic aorta. Normal visualized thoracic spine. Normal visualized ribs, clavicles, and shoulders. There is no demonstrated abnormality of the visualized soft tissue structures of the upper abdomen. RAD/Chest PA and Lateral IMPRESSION: No acute intrathoracic process. Stable appearance right lung nodule. Electronically Signed: Mickie Nielson MD at 16:03 EDT , Service support ,
== END ==
PROVIDERS: Family Provider Internal Medicine; PCP Internal Medicine; Referring Provider Internal Medicine Critical Care Medicine; Visit Provider Internal Medicine Critical Care Medicine
DX: J95.89 Other postprocedural complications and disorders of respiratory system, not elsewhere classified (principal); R91.1 Solitary pulmonary nodule
CPT/HCPCS: 71046

== ENCOUNTER → 2019-03-22 06:17 | Outpatient (CLI) | payer OTHER, SELFPAY ==
[2019-01-16 10:38] VITALS: BMI 29.4
[2019-03-20 08:42] VITALS: BMI 29.2
--- NOTE | 2019-03-22 06:20 | ECHOD_ITS ---
Reason For Study: Abn. EKG Procedure This was a 2D Doppler, Color Flow transthoracic echocardiogram. Exam performed in department. Left Ventricle Normal LV size. Left ventricular systolic function is normal. The estimated ejection fraction is 60 %. The global longitudinal strain = -19 % (normal). No evidence for diastolic dysfunction. No regional wall motion abnormalities noted. Right Ventricle Normal RV size. Normal systolic function. Atria Normal left atrium. Normal right atrium. No doppler evidence for ASD. Mitral Valve There is no mitral annular calcification. Mild diffuse mitral valve thickening. Trivial mitral valve insufficiency. Tricuspid Valve Normal tricuspid valve. Trivial tricuspid valve insufficiency. Aortic Valve Trisinus/trileaflet aortic valve. Normal aortic valve. Pulmonic Valve The pulmonic valve is not well visualized. Trivial eccentric pulmonic valve insufficiency. Great Vessels Normal sized aortic root. Pericardium/Pleural No pericardial effusion. MMode/2D Measurements & Calculations LVIDd: 4.7 cm IVSd: 1.0 cm Ao root diam: 3.3 cm LVIDs: 2.8 cm LVPWd: 1.0 cm RVDd: 3.7 cm FS: 40.1 % LAV(MOD-bp): 30.9 ml EDV(MOD-sp4): 118.4 ml EDV(MOD-sp2): 104.0 ml LAV(MOD-bp) Indexed: 14.2 ml/m2 ESV(MOD-sp4): 56.8 ml EF(MOD-sp2): 49.6 % LAV(MOD-sp2): 26.1 ml EF(MOD-sp4): 52.0 % LAV(MOD-sp4): 34.2 ml SV(MOD-sp4): 61.5 ml SV(MOD-sp2): 51.6 ml LA A4 area: 13.1 cm2 LA dimension(2D): 3.3 cm RA A4 area: 11.3 cm2 Doppler Measurements & Calculations MV E max jeremy: 72.2 cm/sec Lat Peak E' Jeremy: 11.8 cm/sec Med Peak E' Jeremy: 9.1 cm/sec MV A max jeremy: 40.5 cm/sec E/E' lat: 6.1 E/E' med: 7.9 MV E/A: 1.8 Ao V2 max: 111.5 cm/sec LV V1 max: 85.2 cm/sec PA V2 max: 85.2 cm/sec Ao max P.0 mmHg LV V1 max P.9 mmHg Interpretation Summary Left ventricular systolic function is normal. The estimated ejection fraction is 60 %. The global longitudinal strain = -19 % (normal). Mild diffuse mitral valve thickening. Trivial mitral valve insufficiency. Trivial tricuspid valve insufficiency. Trivial eccentric pulmonic valve insufficiency. No evidence for diastolic dysfunction. Ordering Physician: Lauryn Cueto Referring Physician: Lauryn Cueto Performed By: Lizabeth Guzman RDCS
--- NOTE | 2019-03-29 13:36 | STRESSREP ---
Stress Test Report Date: 03/22/2019 Procedure: Exercise tolerance test/imaging study Indications: Chest pain Consent: Per the patient Procedure: The patient exercised on a Theo protocol for 11 minutes and 15 seconds achieving a peak heart rate of 153 bpm (85 % predicted maximal heart rate) with a peak blood pressure 160/82 mmHg and a peak MET capacity of 13.4 METs. The baseline ECG demonstrated normal sinus rhythm. The peak exercise ECG demonstrated sinus tachycardia with no significant ST-T changes. EKG during recovery revealed no evidence of significant ischemia [There were no cardiac dysrhythmias pretest, during exercise, or recovery]. The functional capacity was considered above average for age. There was [no complaint of chest discomfort during exercise or recovery]. The examination was discontinued secondary to dyspnea and leg discomfort. Impression: 1. Technically adequate (percent predicted maximal heart rate greater than 85%) exercise tolerance test 2. Stress test is negative for exercise-induced EKG changes of ischemia 3. The test test is negative for exercise-induced chest pain 4. Functional capacity is above average for age 5. Nuclear images pending Myocardial perfusion imaging study: Technique: The patient was injected with 12 mCi of technetium 99m Cardiolite and subsequently rest SPECT Cardiolite nuclear imaging was obtained in the horizontal long, vertical long, and short axis views. The patient exercised on a Theo protocol. Please see above for details. The patient was injected with 33 mCi of technetium 99m Cardiolite and subsequently stress SPECT Cardiolite nuclear imaging was obtained in the horizontal long, vertical long, and short axis views. A gated Cardiolite study at peak stress was obtained. Interpretation: Rest and stress SPECT Cardiolite nuclear imaging status post realignment, normalization, and attenuation correction, demonstrates normal overall myocardial radioisotope uptake. The gated Cardiolite study demonstrates no significant regional wall motion abnormalities. The reported LVEF is 66 %. Impression: 1. There is no evidence of significant ischemia or infarction. 2. The gated Cardiolite study reports an LVEF of 66 %. This note was generated with Call Britanniaation software. It may contain incorrect words, spelling, and punctuation that were not noted in checking the note before signing.
== END ==
PROVIDERS: Family Provider Internal Medicine; PCP Internal Medicine; Referring Provider Internal Medicine; Visit Provider Internal Medicine
DX: R07.89 Other chest pain (principal); R94.31 Abnormal electrocardiogram [ECG] [EKG]
CPT/HCPCS: 78452; 93017; 93306; A9500; A4216

== ENCOUNTER → 2019-04-04 16:52 | Outpatient (CLI) | payer OTHER, SELFPAY ==
[2019-03-20 08:42] VITALS: BMI 29.2
--- NOTE | 2019-04-04 16:53 | MRI_ITS ---
STUDY: MRI LUMBAR SPINE WITHOUT CONTRAST REASON FOR EXAM: Male, 43 years old. Chronic low back pain, right and left leg pain. TECHNIQUE: Standardized fat and water weighted pulse sequences were obtained in the sagittal and axial planes. COMPARISON: None FINDINGS: T12-L1: Normal endplates. Normal disc height, hydration and morphology. Normal bilateral facet joints. Normal central canal and bilateral lateral recesses. Normal bilateral intervertebral neural foramina. There is straightening of the normal lumbar lordosis. There is no substantial scoliosis. Normal conus medullaris that terminates at the L1 level. L1-2: Normal endplates. Normal disc height, hydration and morphology. Normal bilateral facet joints. Normal central canal and bilateral lateral recesses. Normal bilateral intervertebral neural foramina. L2-3: Normal endplates. Normal disc height, hydration and morphology. Normal bilateral facet joints. Normal central canal and bilateral lateral recesses. Normal bilateral intervertebral neural foramina. L3-4: Normal endplates. Disc dehydration and mild disc space narrowing. Normal bilateral facet joints. Normal central canal and bilateral lateral recesses. Normal bilateral intervertebral neural foramina. L4-5: Normal endplates. Disc dehydration and moderate disc space narrowing. Mild, noncompressive spondylotic bar. Normal central canal. Normal facet joints. Mild right foraminal encroachment due to spurring. L5-S1: Normal endplates. Normal disc height, hydration and morphology. Normal bilateral facet joints. Normal central canal and bilateral lateral recesses. Normal bilateral intervertebral neural foramina. Normal visualized sacral ala. Normal visualized paraspinous soft tissue structures. MRI/Spine Lumbar (Routine) IMPRESSION: 1. No disc protrusion or canal stenosis. 2. L4-5 right foraminal encroachment. 3. Mild degenerative changes are detailed above. Electronically Signed: Hortencia Canchola MD at 18:59 EDT Tel , Service support ,
== END ==
PROVIDERS: Family Provider Internal Medicine; PCP Internal Medicine; Referring Provider Orthopaedic Surgery; Visit Provider Orthopaedic Surgery
DX: M54.16 Radiculopathy, lumbar region (principal)
CPT/HCPCS: 72148

== ENCOUNTER → 2020-02-22 07:21 | Outpatient (CLI) | payer OTHER, SELFPAY ==
[2019-03-20 08:42] VITALS: BMI 29.2
[2019-07-17 09:54] VITALS: BMI 29.2
--- NOTE | 2020-02-22 07:22 | CT_ITS ---
STUDY: CT CHEST WITHOUT CONTRAST REASON FOR EXAM: Male, 44 years old. LUNG NODULE FOLLOW UP, HX SMOKING RADIATION DOSAGE (If Supplied By Facility): CTDIvol = ( 13.20 ) mGy, DLP = ( 511.33 ) mGycm TECHNIQUE: Transaxial imaging was performed without the administration of intravenous contrast material. Multiplanar coronal and sagittal images were reformatted. Individualized dose optimization techniques were used for this CT. COMPARISON: Comparison is made with prior study dated 01/04/2019. FINDINGS: Stable small benign-appearing bilateral axillary lymph nodes. Stable appearance of the noncalcified irregular nodular densities in the right middle lobe along its lateral aspect just anterior to the right minor fissure. This is best seen on axial image #73 and coronal image #121. There is no demonstrated pleural abnormality. Normal heart and pericardium. There are multiple small lymph nodes within the mediastinum, which are normal in size and morphology most compatible with reactive lymph hyperplasia. Normal hilar regions. Normal unenhanced pulmonary arteries. Normal aorta arch and descending thoracic aorta. Normal osseous structures. Fatty infiltration. CT/Chest without Contrast IMPRESSION: Stable examination. Annual CT scan follow-up is recommended. Electronically Signed: Bravo Lester, at 10:24 EDT , Service support ,
== END ==
PROVIDERS: Family Provider Internal Medicine; PCP Internal Medicine; Referring Provider Internal Medicine Critical Care Medicine; Visit Provider Internal Medicine Critical Care Medicine
DX: R91.1 Solitary pulmonary nodule (principal)
CPT/HCPCS: 71250

== ENCOUNTER → 2021-03-02 07:34 | Outpatient (CLI) | payer OTHER, SELFPAY ==
--- NOTE | 2021-03-02 07:35 | CT_ITS ---
STUDY: CT CHEST WITHOUT CONTRAST REASON FOR EXAM: Male, 45 years old. Follow-up for lung nodule. RADIATION DOSAGE (If Supplied By Facility): CTDIvol = ( 14.91 ) mGy, DLP = ( 558.72 ) mGycm TECHNIQUE: Transaxial imaging was performed without the administration of intravenous contrast material. Multiplanar coronal and sagittal images were reformatted. Individualized dose optimization techniques were used for this CT. COMPARISON: Comparison is made with prior study 02/22/2020. FINDINGS: Small benign appearing bilateral axillary lymph nodes. Stable appearance of the noncalcified irregular nodular densities in the right middle lobe along its lateral aspect just anterior to the right minor fissure. There is no demonstrated pleural abnormality. Normal heart and pericardium. There are multiple small lymph nodes within the mediastinum, which are normal in size and morphology most compatible with reactive lymph hyperplasia. Normal hilar regions. Normal unenhanced pulmonary arteries. Normal aorta arch and descending thoracic aorta. Normal osseous structures. Diffuse fatty infiltration of the liver. CT/Chest without Contrast IMPRESSION: Stable examination. Electronically Signed: Bravo Lester MD at 10:36 EDT , Service support ,
== END ==
PROVIDERS: PCP Internal Medicine; Referring Provider Nurse Practitioner Acute Care; Visit Provider Nurse Practitioner Acute Care
DX: R91.1 Solitary pulmonary nodule (principal)
CPT/HCPCS: 71250

== ENCOUNTER → 2021-06-08 15:06 | Outpatient (CLI) | payer OTHER, SELFPAY ==
[2021-06-08 16:12] LABS: Uric Acid 2.9 mg/dL (3.5-7.2)
== END ==
PROVIDERS: PCP Internal Medicine; Visit Provider Internal Medicine
DX: M79.671 Pain in right foot (principal)
CPT/HCPCS: 36415; 84550

== ENCOUNTER → 2022-09-15 | Outpatient (CLI) | payer OTHER, SELFPAY ==
[2022-09-15 08:26] LABS: Absolute Lymphocyte Count 3.79 X10^3/uL (0.83-4.51); Basophil# 0.08 X10^3/uL; Basophil% 0.6 % (0-1); Eosinophil# 0.13 X10^3/uL; Hematocrit 48.4 % (40-54); Lymphocyte # 3.79 X10^3/ul (0.83-4.51); Lymphocyte % 29.5 % (19-41); Mean Corp Hgb Conc 33.1 g/dL (32-36); Mean Corpuscular Hgb 29.1 pg (27.0-32.0); Mean Corpuscular Volume 88.2 fL (80-94); Mean Platelet Vol. 9.5 fl (6.2-12.0); Monocyte# 0.79 X10^3/uL; Monocyte% 6.1 % (0-10); NRBC Flagged by Analyzer 0 % (0-5); Neutrophil # 7.98 X10^3/uL (2.7-7.7); Neutrophil % 62.1 % (47-70); Platelet Count 278 K/mm3 (150-450); RBC Distribution Width CV 13.1 % (11.6-14.6); RBC Distribution Width SD 42.5 fl (35.1-43.9); Red Blood Count 5.49 M/mm3 (4.6-6.2); White Blood Count 12.9 K/mm3 (4.4-11.0)
[2022-09-15 09:07] LABS: ALB/GLOB Ratio 1.1 RATIO (0.9-2.4); AST(SGOT) 21 U/L (15-37); Alanine Aminotransfer ALT/SGPT 48 U/L (16-61); Albumin, Serum 3.8 g/dL (3.2-5.0); Alkaline Phosphatase 79 U/L (45-117); Anion Gap 7 (5-15); BUN 18 mg/dL (7-18); BUN/Creat Ratio 18.5 RATIO (10-20); Calcium,Total 8.8 mg/dL (8.5-10.1); Chloride 104 mmol/L (98-107); Cholesterol 123 mg/dL (200); Creatinine, Serum 0.97 mg/dL (0.70-1.30); EST Glomerular Filtration Rate 89 mL/min (>60); Est Glom Filt Rate - Afr Amer 107 mL/min (>60); Globulin 3.5 g/dL (2.2-4.2); Glucose 91 mg/dL (74-106); High Density Lipoprotein 57 mg/dL; Potassium 3.6 mmol/L (3.5-5.1); Protein, Total 7.3 g/dL (6.4-8.2); Sodium Level 137 mmol/L (136-145); Triglycerides 95 mg/dL; Very Low Density Lipoprotein 19 mg/dL (5-40)
== END | disposition home or self-care (01) ==
LOC: LAB 07:58
PROVIDERS: PCP Family Medicine; Referring Provider Family Medicine; Visit Provider Family Medicine
DX: Z00.00 Encounter for general adult medical examination without abnormal findings (principal)
CPT/HCPCS: 36415; 80053; 80061; 85025

== ENCOUNTER 2022-11-23 08:18 | Day surgery (SDC) | payer OTHER, SELFPAY ==
[2022-11-23] VITALS (7 sets, daily range): BP systolic 113–143; BP diastolic 83–94; PULSE 63–80; RESP 16–17; TEMP 36.3–37.1; O2SAT 92–96; BMI 30.2
[2022-11-23] MEDS: Lactated Ringers 1,000 ML 15 ML IV (08:35)
--- NOTE | 2022-11-23 08:43 | HP.PCM_ITS ---
History and Physical Date of Admission: 11/23/22 Visit Reasons:?C-SCOPE & EGD Chief Complaint: c-scope & egd Allergies No Known Allergies Allergy (Verified 03/04/21 06:48) Medications multivitamin 1 ea PO DAILY 05/28/15 [History Confirmed 10/18/22] omeprazole 40 mg capsule,delayed release 40 mg PO DAILY 05/28/15 [History Confirmed 10/18/22] ascorbic acid (vitamin C) 500 mg tablet 500 mg PO QDAY 06/09/17 [History Confirmed 10/18/22] buspirone 5 mg tablet 2.5 mg PO DAILY 07/15/20 [History Confirmed 10/18/22] levocetirizine 5 mg tablet (Xyzal) 5 mg PO DAILY 07/15/20 [History Confirmed 10/18/22] ibuprofen 800 mg tablet 800 mg PO TID back pain #60 tabs 10/31/20 [Rx Confirmed 10/18/22] PFSH Medical History?(Updated 10/18/22 @ 05:[address] Demond Pavon MD) Anxiety Chronic cough Disturbance of skin sensation GERD (gastroesophageal reflux disease) Inguinal hernia Insomnia Sinusitis Unspecified hearing loss Surgical History? S/P right knee surgery Family History? Father DiabetesOther Cancer Hypertension Social History? Smoking Status:? Former smoker Smokeless tobacco user:? chewing tobacco HPI HPI HPI: 46-year-old gentleman is being referred by Dr. Ap Robles for surgical consultation regarding reflux disease on chronic omeprazole therapy 20 mg daily as well as need for screening colonoscopy.? A written compromise surgical consult recommendations will return to him.? 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 He has been on a PPI for many years over a decade.? He also takes ibuprofen at least 800 mg daily because of a ruptured disc.? He denies personal history of peptic ulcer disease.? He does have current reflux symptoms.? He works out of town 300 days out of the year.? He is not able to raise the head of his bed in those situations.? He has had no black stools or blood in his stools.? No unexpected weight loss.? No history of DVT.? He has no known family history of colon cancer though his father had some type of colon disease. ROS General General: No weight change, appetite, fatigue, colon cancer, breast cancer or weakness HEENT HEENT: No difficulty swallowing, eye injury, eye surgery, swollen glands or hoarseness Endo Endocrine: No thyroid disease, diabetes mellitus, thyroid cancer, Hair loss, heat intolerance or cold intolerance Skin Skin: No rash or changing moles Breast Breast: No left breast lump, right breast lump, nipple discharge, breast pain, abnormal mammogram, abnormal US or breast enlargement Musc Musculoskeletal: No back problems, arthritis, rheumatoid arthritis, gout or joint pain Cardio Cardiovascular: Yes heart disease; No murmur, pacemaker, atrial fibrillation, high blood pressure, heart attack, heart stent, palpitations, shortness of breat with exertion or chest pain Psych Psychiatric: No depression, anxiety or hearing voices Resp Respiratory: No shortness of breath, No sleep apnea, No cough, No COPD, No asthma, No emphysema and No wheezing Gastro Gastrointestinal: No abdominal pain, No nausea or vomiting, No diarrhea, No constipation, No blood in stool, No acid reflux, No hemorrhoids, No ulcers, No gallbladder problem and No black,tarry stools Tyler Hematologic: No blood thinners, No blood disorders, No bleeding, No anemia and No blood clots Neuro Neurologic: No system reviewed and no additional complaints, except as documented, No as per HPI, No abnormal gait, No abnormal hearing, No abnormal movements, No abnormal speech, No behavioral changes, No burning sensations, No confusion, No convulsions, No disequilibrium, No dizziness, No localized weakness, No frequent falls, No headache(s), No lack of coordination, No loss of vision, No memory loss, No numbness, No other visual disturbances, No radicular pain, No restless legs, No sensory deficit, No syncope, No tingling, No tremor(s), No weakness and No other Exam Const General: cooperative, healthy appearing, comfortable and no acute distress [facility] Head: normal to inspection Eyes General: appearance normal, both eyes and all related structures Neck Neck: normal visual inspection Chest Chest palpation & inspection: normal inspection of the chest Resp Effort & Inspection: normal respiratory effort Auscultation: clear to auscultation bilaterally Cardio Rate: regular rate Rhythm: regular rhythm GI Palpation: soft and no hepatosplenomegaly Auscultation: normal bowel sounds Musc Cervical Spine: normal cervical lordosis Skin General: no rashes or lesions noted Neuro General: patient alert, patient awake and patient oriented x3 Extrem General: no calf tenderness Psych Appearance: grossly normal Assessment and Plan Assessment and Plan (1) Screening for intestinal cancer: ?Status:?Acute (2) GERD (gastroesophageal reflux disease): ?Status:?Acute ?Plan: I recommended the patient a combined esophagogastroduodenoscopy for very careful inspection of reflux disease or even Moise's.? I recommend to him a screening colonoscopy with possible biopsy or polypectomy as indicated.? He is aware of technique, benefit, risk and alternatives I have strongly recommended the patient that he cease his chewing tobacco use as it facilitates reflux symptoms and is carcinogenic. Because of the patient's work obligations and travel obligations we will try our best to schedule and proceed at the time of convenience for him. I have asked that he hold his ibuprofen 5 days preintervention Appreciate the opportunity of assisting with surgical care.? I anticipate monitored anesthesia care Copy: Dr. Ap Pavon M.D., F.A.C.S I have examined the patient and the H&P has been reviewed. There are no clinical changes since date of exam. Dmeond Pavon M.D., F.A.C.S.
--- NOTE | 2022-11-23 09:15 | EGD_PTH ---
PATIENT: EVELYN CORMIER LOC: EN U#:[id number] AGE/SX: 46/M ROOM: RE11/23/[address]: Dr. Demond Pavon MD : 1975 BED: DIS: 11/23/2022 SPEC #: [id number] RECD: 11/23/22 11:35 STATUS: LUCILLE DAISY #: [id number] ARLENE: 11/23/22 09:[address]: Demond Pavon DEPT: SURGICAL PATHOLOGY RECD BY: Shania Butler ENTERED: 11/23/22 12:30 SP TYPE: EGD BIOPSY OTHR DR: Dr. Ap Robles DO Tissues: A - Gastric mucous membrane B - Esophagus, NOS C - Esophagus, NOS Procedures: Special Stain Group II Surgery Specimen Level IV Alcian Blue/PAS (control) HEADER OPERATION: Colonoscopy, EGD with biopsies (MAC) PRE-OP DIAGNOSIS: Screening, GERD TISSUE SUBMITTED: A ? Antrum for H. pylori and path, B ? Distal esophagus, C ? Mid esophagus MICROSCOPIC DIAGNOSIS A. Antrum, biopsy: Mild gastritis. See microscopic description and comment. B. Distal esophagus, biopsy: Fragments of squamous epithelium with changes consistent with eosinophilic esophagitis. A minute fragment of gastric epithelium, negative for intestinal metaplasia (goblet cell metaplasia). See comment. C. Mid esophagus, biopsy: Fragments of benign squamous epithelium. SJ:leana 11/24/2022 COMMENT A. The results of immunohistochemistry for Helicobacter pylori will be reported separately ([id number]). B. The specimen predominantly consists of squamous epithelium. Increased number of eosinophils (>20?per high power field) are noted consistent with eosinophilic esophagitis. Alcian blue/PAS stain with matched control is used in the evaluation of the specimen. MICROSCOPIC DESCRIPTION Slides are reviewed. A. The specimen shows fragments of gastric mucosa with chronic inflammatory cell infiltrates in the lamina propria consisting of lymphocytes and plasma cells, consistent with mild chronic gastritis. GROSS DESCRIPTION A - Received in fixative is one container labeled with the patient's name and designated antrum biopsy. The specimen consists of two irregular fragments of light jamison soft tissue that in aggregate measure 0.6 x 0.3 x 0.1 cm. The specimen is totally submitted in one cassette. B - Received in fixative is one container labeled with the patient's name and designated distal esophagus. The specimen consists of multiple irregular fragments of light jamison soft tissue that in aggregate measure 1.0 x 0.3 x 0.1 cm. The specimen is totally submitted in one cassette. C - Received in fixative is one container labeled with the patient's name and designated mid esophagus. The specimen consists of two irregular fragments of light jamison soft tissue that in aggregate measure 0.6 x 0.3 x 0.1 cm. The specimen is totally submitted in one cassette. / SJ:rg 11/23/2022 TC:3 CPT: 33255 x3, 01904
--- NOTE | 2022-11-23 09:15 | IMM_PTH ---
PATIENT: EVELYN CORMIER LOC: EN U#:[id number] AGE/SX: 46/M ROOM: RE11/23/[address]: Dr. Demond Pavon MD : 1975 BED: DIS: 11/23/2022 SPEC #: [id number] RECD: 11/23/22 12:54 STATUS: LUCILLE REAlexander #: [id number] ARLENE: 11/23/22 09:[address]: Demond aPvon DEPT: IMMUNOHISTOCHEMISTRY RECD BY: Karrie Rai ENTERED: 11/23/22 12:55 SP TYPE: IMMUNO OTHR DR: Dr. Ap Robles, DO Tissues: A - Stomach, NOS Procedures: H Pylori (initial) PHYSICIAN & INSTITUTION [place] [address] SPECIMEN INFORMATION: Tissue Source: A - Antrum Clinical Info: Screening, GERD Specimen Number: [id number] CPT code: 97822 METHODOLOGY: Deparaffinized sections of prefer/formalin-fixed tissue or PAP/DQ stained slides are incubated with monoclonal/polyclonal antibodies/oligonucleotide probes. Localization is made via biotin free immunoperoxidase method. Appropriate controls are performed and reacted as expected. Results on target cell population are indicated in the following table: RESULTS: ANTIBODY / CLONE RESULT Block A H Pylori (polyclonal) negative These tests were developed and their performance characteristics determined by [facility]. They may not have been cleared or approved by the U.S. Food and Drug Administration. The FDA has determined that such clearance or approval is not necessary. The above immunohistochemical/dualISH markers are ordered and reviewed by the Pathologist. INTERPRETATION: A. Antrum, biopsy: Negative for Helicobacter pylori organisms. SJ:leana 11/24/2022
--- NOTE | 2022-11-23 10:12 | OP.EGD_ITS ---
Patient Name: Kristofer Dominguez Procedure Date: 11/23/2022 9:38 AM Date of : 1975 Age: 46 Procedure: Upper GI endoscopy Indications: Suspected esophageal reflux Providers: Demond Pavon MD Referring MD: Ap Robles Medicines: See the Anesthesia note for documentation of the administered medications Complications: No immediate complications. Procedure: Pre-Anesthesia Assessment: - Prior to the procedure, a History and Physical was performed, and patient medications and allergies were reviewed. The patient's tolerance of previous anesthesia was also reviewed. The risks and benefits of the procedure and the sedation options and risks were discussed with the patient. All questions were answered, and informed consent was obtained. Prior Anticoagulants: The patient has taken no previous anticoagulant or antiplatelet agents. ASA Grade Assessment: II - A patient with mild systemic disease. After reviewing the risks and benefits, the patient was deemed in satisfactory condition to undergo the procedure. After obtaining informed consent, the endoscope was passed under direct vision. Throughout the procedure, the patient's blood pressure, pulse, and oxygen saturations were monitored continuously. The pediatric colonoscope was introduced through the mouth, and advanced to the second part of duodenum. The upper GI endoscopy was accomplished without difficulty. The patient tolerated the procedure well. Scope In: 9:46:26 AM Scope Out: 9:53:39 AM Total Procedure Duration Time 0 hours 7 minutes 13 seconds Findings: The Z-line was regular and was found 44 cm from the incisors. Biopsies were taken with a cold forceps for histology. The middle third of the esophagus was normal. Biopsies were taken with a cold forceps for histology. A 1 cm hiatal hernia was present. Diffuse mildly erythematous mucosa without bleeding was found in the gastric antrum. Biopsies were taken with a cold forceps for histology. The examined duodenum was normal. Impression: - Z-line regular, 44 cm from the incisors. Biopsied. - Normal middle third of esophagus. Biopsied. - 1 cm hiatal hernia. - Erythematous mucosa in the antrum. Biopsied. - Normal examined duodenum. Recommendation: - Discharge patient to home. - Resume previous diet. - Continue present medications. - Telephone my office for pathology results in 1 week. We will await pathology. Pending the patient's wishes we could pursue esophageal manometry. Procedure Code(s): --- Professional --- 52248, Esophagogastroduodenoscopy, flexible, transoral; with biopsy, single or multiple Diagnosis Code(s): --- Professional --- K44.9, Diaphragmatic hernia without obstruction or gangrene K31.89, Other diseases of stomach and duodenum CPT copyright 2017 [employer]. All rights reserved. The codes documented in this report are preliminary and upon medical coder review may be revised to meet current compliance requirements. Demond Pavon MD 11/23/2022 10:12:15 AM This report has been signed electronically. Number of Addenda: 0 Note Initiated On: 11/23/2022 9:38 AM
--- NOTE | 2022-11-23 10:13 | OP.CCLET_ITS ---
11/23/2022 Ap Robles [address] [place] [address] Re : Upper GI endoscopy procedure for Kristofer Dominguez Dear Dr. Robles This procedure was performed on Wednesday, November 23, 2022. My impressions and recommendations are as follows: Impressions : - Z-line regular, 44 cm from the incisors. Biopsied. - Normal middle third of esophagus. Biopsied. - 1 cm hiatal hernia. - Erythematous mucosa in the antrum. Biopsied. - Normal examined duodenum. Recommendations : - Discharge patient to home. - Resume previous diet. - Continue present medications. - Telephone my office for pathology results in 1 week. We will await pathology. Pending the patient's wishes we could pursue esophageal manometry. My findings are described in the full procedure note, which is enclosed. If I can be of further assistance, please feel free to contact me at Doctor phone number(s): Work: . Sincerely, Demond Pavon MD 11/23/2022 10:12:15 AM This report has been signed electronically.
--- NOTE | 2022-11-23 10:18 | OP.COLON_ITS ---
Patient Name: Kristofer Dominguez Procedure Date: 11/23/2022 9:54 AM Date of : 1975 Age: 46 Procedure: Colonoscopy Indications: Screening for colorectal malignant neoplasm Providers: Demond Pavon MD Referring MD: Ap Robles Medicines: See the Anesthesia note for documentation of the administered medications Patient Profile: Last Colonoscopy: none. The patient's first colonoscopy is today. Complications: No immediate complications. Procedure: Pre-Anesthesia Assessment: - Prior to the procedure, a History and Physical was performed, and patient medications and allergies were reviewed. The patient's tolerance of previous anesthesia was also reviewed. The risks and benefits of the procedure and the sedation options and risks were discussed with the patient. All questions were answered, and informed consent was obtained. Prior Anticoagulants: The patient has taken no previous anticoagulant or antiplatelet agents. ASA Grade Assessment: II - A patient with mild systemic disease. After reviewing the risks and benefits, the patient was deemed in satisfactory condition to undergo the procedure. - Prior to the procedure, a History and Physical was performed, and patient medications and allergies were reviewed. The patient's tolerance of previous anesthesia was also reviewed. The risks and benefits of the procedure and the sedation options and risks were discussed with the patient. All questions were answered, and informed consent was obtained. Prior Anticoagulants: The patient has taken no previous anticoagulant or antiplatelet agents. ASA Grade Assessment: II - A patient with mild systemic disease. After reviewing the risks and benefits, the patient was deemed in satisfactory condition to undergo the procedure. After I obtained informed consent, the scope was passed under direct vision. Throughout the procedure, the patient's blood pressure, pulse, and oxygen saturations were monitored continuously. The pediatric colonoscope was introduced through the anus and advanced to the cecum, identified by appendiceal orifice and ileocecal valve. The colonoscopy was performed without difficulty. The patient tolerated the procedure well. The quality of the bowel preparation was good. The ileocecal valve and the appendiceal orifice were photographed. Scope In: 9:55:36 AM Scope Withdrawal Time 0 hours 6 minutes 40 seconds Scope Out: 10:06:37 AM Total Procedure Duration Time 0 hours 11 minutes 1 second Findings: The perianal and digital rectal examinations were normal. Pertinent negatives include normal prostate (size, shape, and consistency). The colon (entire examined portion) appeared normal. Impression: - The entire examined colon is normal. - No specimens collected. Recommendation: - Discharge patient to home. - Resume previous diet. - Continue present medications. - Repeat colonoscopy in 10 years for screening purposes. Procedure Code(s): --- Professional --- 85702, Colonoscopy, flexible; diagnostic, including collection of specimen(s) by brushing or washing, when performed (separate procedure) CPT copyright 2017 [employer]. All rights reserved. The codes documented in this report are preliminary and upon table cut off saw operator review may be revised to meet current compliance requirements. Demond Pavon MD 11/23/2022 10:18:07 AM This report has been signed electronically. Number of Addenda: 0 Note Initiated On: 11/23/2022 9:54 AM
--- NOTE | 2022-11-23 10:19 | OP.CCLET_ITS ---
11/23/2022 pA Robles [address] [place] [address] Re : Colonoscopy procedure for Kristofer Dominguez Dear Dr. Robles This procedure was performed on Wednesday, November 23, 2022. My impressions and recommendations are as follows: Impressions : - The entire examined colon is normal. - No specimens collected. Recommendations : - Discharge patient to home. - Resume previous diet. - Continue present medications. - Repeat colonoscopy in 10 years for screening purposes. My findings are described in the full procedure note, which is enclosed. If I can be of further assistance, please feel free to contact me at Doctor phone number(s): Work: . Sincerely, Demond Pavon MD 11/23/2022 10:18:07 AM This report has been signed electronically.
== END 2022-11-23 11:08 | disposition home or self-care (01) ==
LOC: EN 08:19 → AC 08:20
PROVIDERS: PCP Family Medicine; Referring Provider Family Medicine; Visit Provider Surgery
PROC: 0DJD8ZZ Inspection of Lower Intestinal Tract, Via Natural or Artificial Opening Endoscopic (ICD-10-PCS; CPT 45378; principal; 2022-11-23 09:10)
DX: Z12.11 Encounter for screening for malignant neoplasm of colon (principal); K44.9 Diaphragmatic hernia without obstruction or gangrene; K21.9 Gastro-esophageal reflux disease without esophagitis; Z87.891 Personal history of nicotine dependence; Z79.899 Other long term (current) drug therapy; K29.70 Gastritis, unspecified, without bleeding
CPT/HCPCS: 43239; 45378; 88305; 88313; 88342; J7120; J2405

== ENCOUNTER → 2024-04-21 | Outpatient (CLI) | payer OTHER, SELFPAY ==
--- NOTE | 2024-04-21 09:26 | CT_ITS ---
STUDY: CT MAXILLOFACIAL SINUSES REASON FOR EXAM: Male, 48 years old. SINUSITIS RADIATION DOSAGE (If Supplied By Facility): CTDIvol = ( 33.06 ) mGy, DLP = ( 751.21 ) mGycm TECHNIQUE: The patient was scanned in a multi detector CT scanner. High resolution axial imaging was performed without the administration of intravenous contrast material. Sagittal and coronal images were reconstructed. Individualized dose optimization techniques were used for this CT. COMPARISON: Comparison is made with prior study dated March 02, 2016. FINDINGS: FRONTAL SINUSES: Normal aeration, without mucosal inflammatory disease. ETHMOIDAL SINUSES: Mild degree of mucosal thickening of the ethmoid sinuses. MAXILLARY SINUSES: Partial opacification of the maxillary sinuses bilaterally. SPHENOIDAL SINUSES: Normal aeration, without mucosal inflammatory disease. Compromise of the bilateral ostiomeatal complexes due to mucosal hypertrophy. Normal bilateral middle turbinates. Normal bilateral inferior turbinates. Normal midline nasal septum. There is patency of the bilateral nasal airways. The visualized osseous structures are normal. The visualized bilateral orbital contents are normal. CT/Sinus/Facial Bone IMPRESSION: Partial opacification of the maxillary sinuses with obliteration of the ostiomeatal complex bilaterally. Mucosal thickening of the ethmoid sinuses. Electronically Signed: Bravo Lester MD at 15:24 EST ,
== END | disposition home or self-care (01) ==
LOC: CT 09:25
PROVIDERS: PCP Family Medicine; Referring Provider Otolaryngology; Visit Provider Otolaryngology
DX: J32.8 Other chronic sinusitis (principal)
CPT/HCPCS: 70486

== ENCOUNTER → 2024-06-21 | Outpatient (CLI) | payer OTHER, SELFPAY | END | disposition home or self-care (01) | PROVIDERS: PCP Family Medicine; Referring Provider Otolaryngology; Visit Provider Otolaryngology | DX: J32.8 Other chronic sinusitis (principal) | CPT/HCPCS: 87070; 87205 ==

== ENCOUNTER → 2024-07-25 | Outpatient (CLI) | payer OTHER, SELFPAY ==
--- NOTE | 2024-07-25 07:37 | RAD_ITS ---
PROCEDURE: CERV SPINE 4 OR 5 VIEWS REASON FOR EXAM: Cervicalgia. TECHNIQUE: Five view cervical spine series including bilateral oblique views. COMPARISON: None. RAD/Cerv Spine 4 or 5 Views IMPRESSION: [id number] degenerative changes of the lower cervical spine are seen, wit h moderate disc narrowing seen at the C5-C6 level. Oblique views demonstrate mild bilateral osseous neural foraminal narrowing at C5-C6, right worse than left. No fracture, subluxation, or prevertebral soft tissue swelling is noted. Reading Location: [id number]
== END | disposition home or self-care (01) ==
LOC: RAD 07:33
PROVIDERS: PCP Family Medicine
DX: M54.2 Cervicalgia (principal)
CPT/HCPCS: 72050